=== PATIENT | male | born 1955 | race Caucasian/White ===

== ENCOUNTER 2018-02-05 11:45 | Inpatient (IN) | payer MEDICARE, MEDICAID ==
[~2018-02-05] VITALS: Ht 180.3 cm; Wt 90.3 kg
[~2018-02-05 11:45] MED LIST: ESCI10TA PO; LITH300T4 PO; MULT-1203 PO
[2018-02-05] MEDS ORDERED: LITH300CRT PO (13:31)
[2018-02-05] MEDS ORDERED: OXYC-38 PO (13:31)
[2018-02-05] MEDS ORDERED: QUET200T PO (13:31)
[2018-02-05 13:44] VITALS: BP 129/64
[2018-02-05] MEDS ORDERED: LOPERAMIDE HCL 2 MG CAPSULE PO PRN (13:45)
[2018-02-05] MEDS ORDERED: MAGNESIUM HYDROXIDE SUSPENSION 30 ML UDCUP PO PRN (13:45)
[2018-02-05] MEDS ORDERED: TUBERCULIN, PURIFIED PROTEIN DERIVATIVE 5 TU/0.1 ML SYG ID ONE (13:45)
[2018-02-05] MEDS ORDERED: HydrOXYzine PAMOATE 50 MG CAPSULE PO PRN (13:45)
[2018-02-05] MEDS ORDERED: ACETAMINOPHEN 325 MG TABLET PO PRN (13:45)
[2018-02-05] MEDS ORDERED: GuaiFENesin/D-METHORPHAN [SUGAR-FREE] 200-20MG/10 ML SYRUP UDCUP PO PRN (13:45)
[2018-02-05] MEDS ORDERED: PROMETHAZINE HCL 25 MG TABLET PO PRN (13:45)
[2018-02-05] MEDS ORDERED: MAG HYDROX/AL HYDROX/SIMETH ES 30 ML SUSPENSION UDCUP PO PRN (13:45)
[2018-02-05] MEDS ORDERED: QUEtiapine FUMARATE 100 MG TABLET PO PRN (13:45)
[2018-02-05] MEDS: THIAMINE HCL 100 MG TABLET PO SCH (16:39)
[2018-02-05] MEDS: LITHIUM CARBONATE 300 MG CAPSULE PO SCH (16:39)
[2018-02-05] MEDS: ACAMPROSATE CALCIUM 333 MG DR TABLET PO SCH (17:00)
[2018-02-05 19:20] VITALS: BP 114/78
[2018-02-05] MEDS: QUEtiapine FUMARATE 200 MG TABLET PO SCH (20:35)
[2018-02-06 02:45] VITALS: BP 112/76
[2018-02-06] MEDS: LITHIUM CARBONATE 300 MG CAPSULE PO SCH ×3 (08:22→16:34)
[2018-02-06] MEDS: THIAMINE HCL 100 MG TABLET PO SCH ×2 (08:23→16:34)
[2018-02-06] MEDS: AMOXICILLIN TRIHYDRATE 500 MG CAPSULE PO SCH ×3 (08:23→16:34)
[2018-02-06] MEDS: FOLIC ACID 1 MG TABLET PO SCH (08:23)
[2018-02-06] MEDS: MULTIVITAMINS WITH MINERALS, THERAPEUTIC TABLET PO SCH (08:23)
[2018-02-06] MEDS: ACAMPROSATE CALCIUM 333 MG DR TABLET PO SCH ×3 (08:27→16:34)
[2018-02-06 08:32] LABS: BASOPHILS % (AUTO) 0.5 % (0.0-2.0); EOSINOPHILS % (AUTO) 4.7 % (1.0-6.0); HEMATOCRIT 40.9 % (41-53); HEMOGLOBIN 14.1 g/dL (13.5-17.5); LYMPHOCYTES # (AUTO) 1.5 K/uL (1.0-4.8); LYMPHOCYTES % (AUTO) 23.1 % (22.0-44.0); MEAN CORPUSCULAR HEMOGLOBIN 33.1 pg (26.0-34.0); MEAN CORPUSCULAR HGB CONC 34.4 G/dL (31.0-37.0); MEAN CORPUSCULAR VOLUME 96 fL (80-100); MONOCYTES # (AUTO) 0.5 K/uL (0.1-1.0); MONOCYTES % (AUTO) 8.4 % (2.0-9.0); NEUTROPHILS # (AUTO) 4.1 K/uL (1.8-7.7); NEUTROPHILS % (AUTO) 63.3 % (40.0-70.0); PLATELET COUNT (AUTO) 223 K/uL (150-450); RED BLOOD CELL COUNT(AUTO) 4.25 MIL/uL (4.50-5.90); RED CELL DISTRIBUTION WIDTH 12.5 % (11.5-14.5)
[2018-02-06 08:50] LABS: HEMOGLOBIN A1C 5.1 % (4.5-6.2)
[2018-02-06 09:11] LABS: ALANINE AMINOTRANSFERASE 51 U/L (12-78); ALBUMIN 3.1 g/dL (3.4-5.0); ALKALINE PHOSPHATASE 57 U/L (46-116); ANION GAP 5 mmol/L (8-16); ASPARTATE AMINOTRANSFERASE 19 U/L (15-37); BILIRUBIN,TOTAL 0.6 mg/dL (0.1-1.0); CARBON DIOXIDE 29 mmol/L (22-29); CHLORIDE 106 mmol/L (98-107); CHOL/HDL RATIO 2.5 (4.2-7.3); CHOLESTEROL 119 mg/dL (131-200); CREATININE 0.85 mg/dL (0.60-1.30); GLOMERULAR FILTR. RATE CALC > 60 mL/min (>60); GLUCOSE,RANDOM 96 mg/dL (70-110); HDL CHOLESTEROL 47 mg/dL (40-60); LDL CHOL (CALC.) 60 mg/dL (0-130); POTASSIUM 3.7 mmol/L (3.5-5.1); SODIUM SERUM 140 mmol/L (136-145); THYROID STIMULATING HORMONE 0.67 uIU/mL (0.36-3.74); TOTAL PROTEIN, SERUM 6.6 g/dL (6.4-8.2); TRIGLYCERIDES 59 mg/dL (15-150); UREA NITROGEN, BLOOD 22 mg/dL (7-18)
[2018-02-06 09:12] VITALS: BP 125/69
[2018-02-06 16:20] VITALS: BP 110/74
[2018-02-06] MEDS: QUEtiapine FUMARATE 200 MG TABLET PO SCH (20:37)
[2018-02-07 00:49] VITALS: BP 103/66
[2018-02-07 08:20] VITALS: BP 112/71
[2018-02-07 09:14] LABS: AMPHET/METH SCREEN,URINE POSITIVE (NEGATIVE); BARBITURATE SCREEN, URINE NEGATIVE (NEGATIVE); BENZODIAZEPINES SCREEN,URINE NEGATIVE (NEGATIVE); CANNABINOID SCREEN,URINE NEGATIVE (NEGATIVE); COCAINE SCREEN,URINE NEGATIVE (NEGATIVE); METHADONE SCREEN, URINE NEGATIVE (NEGATIVE); OPIATE SCREEN,URINE NEGATIVE (NEGATIVE)
[2018-02-07 09:15] LABS: PHENCYCLIDINE SCREEN,URINE NEGATIVE (NEGATIVE)
[2018-02-07 09:35] LABS: APPEARANCE,URINE CLEAR (CLEAR); BILIRUBIN,URINE NEGATIVE (NEGATIVE); GLUCOSE, URINE (UA) NEGATIVE (NEGATIVE); KETONES,URINE NEGATIVE (NEGATIVE); LEUKOCYTE ESTERASE ,URINE NEGATIVE (NEGATIVE); NITRATE,URINE NEGATIVE (NEGATIVE); OCCULT BLOOD,URINE NEGATIVE (NEGATIVE); PH,URINE 6.5 (5.0-8.0); PROTEIN,URINE NEGATIVE (NEGATIVE); UROBILINOGEN,URINE 0.2 mg/dL (<=1.0)
[2018-02-07] MEDS: FOLIC ACID 1 MG TABLET PO SCH (09:50)
[2018-02-07] MEDS: ACAMPROSATE CALCIUM 333 MG DR TABLET PO SCH ×3 (09:50→16:38)
[2018-02-07] MEDS: THIAMINE HCL 100 MG TABLET PO SCH ×2 (09:50→16:38)
[2018-02-07] MEDS: MULTIVITAMINS WITH MINERALS, THERAPEUTIC TABLET PO SCH (09:50)
[2018-02-07] MEDS: AMOXICILLIN TRIHYDRATE 500 MG CAPSULE PO SCH ×3 (09:50→16:38)
[2018-02-07] MEDS: LITHIUM CARBONATE 300 MG CAPSULE PO SCH ×3 (09:50→16:38)
[2018-02-07 17:07] VITALS: BP 128/78
[2018-02-07] MEDS: QUEtiapine FUMARATE 200 MG TABLET PO SCH (20:31)
[2018-02-08 00:08] VITALS: BP 111/69
[2018-02-08 08:33] VITALS: BP 120/66
[2018-02-08] MEDS: ACAMPROSATE CALCIUM 333 MG DR TABLET PO SCH ×3 (08:42→16:33)
[2018-02-08] MEDS: THIAMINE HCL 100 MG TABLET PO SCH ×2 (08:42→16:33)
[2018-02-08] MEDS: AMOXICILLIN TRIHYDRATE 500 MG CAPSULE PO SCH ×3 (08:42→16:33)
[2018-02-08] MEDS: MULTIVITAMINS WITH MINERALS, THERAPEUTIC TABLET PO SCH (08:42)
[2018-02-08] MEDS: LITHIUM CARBONATE 300 MG CAPSULE PO SCH ×3 (08:42→16:33)
[2018-02-08] MEDS: FOLIC ACID 1 MG TABLET PO SCH (08:42)
[2018-02-08 16:07] VITALS: BP 116/67
[2018-02-08] MEDS ORDERED: QUEtiapine FUMARATE 300 MG TABLET PO SCH (21:00)
[2018-02-09 06:59] VITALS: BP 120/86
[2018-02-09 08:21] VITALS: BP 113/71
[2018-02-09] MEDS: AMOXICILLIN TRIHYDRATE 500 MG CAPSULE PO SCH ×3 (08:34→16:36)
[2018-02-09] MEDS: MULTIVITAMINS WITH MINERALS, THERAPEUTIC TABLET PO SCH (08:34)
[2018-02-09] MEDS: THIAMINE HCL 100 MG TABLET PO SCH ×2 (08:34→16:36)
[2018-02-09] MEDS: FOLIC ACID 1 MG TABLET PO SCH (08:34)
[2018-02-09] MEDS: LITHIUM CARBONATE 300 MG CAPSULE PO SCH ×3 (08:34→16:36)
[2018-02-09] MEDS: ACAMPROSATE CALCIUM 333 MG DR TABLET PO SCH ×3 (08:35→16:36)
[2018-02-09] MEDS: LORazepam 2 MG TABLET PO PRN (09:19)
[2018-02-09 16:10] VITALS: BP 100/60
[2018-02-09] MEDS: QUEtiapine FUMARATE 200 MG TABLET PO SCH (20:45)
[2018-02-10 06:23] VITALS: BP 109/64
[2018-02-10 08:14] VITALS: BP 113/65
[2018-02-10] MEDS: ACAMPROSATE CALCIUM 333 MG DR TABLET PO SCH ×3 (09:07→16:12)
[2018-02-10] MEDS: THIAMINE HCL 100 MG TABLET PO SCH ×2 (09:07→16:11)
[2018-02-10] MEDS: MULTIVITAMINS WITH MINERALS, THERAPEUTIC TABLET PO SCH (09:07)
[2018-02-10] MEDS: AMOXICILLIN TRIHYDRATE 500 MG CAPSULE PO SCH ×3 (09:07→16:12)
[2018-02-10] MEDS: LITHIUM CARBONATE 300 MG CAPSULE PO SCH ×3 (09:07→16:12)
[2018-02-10] MEDS: FOLIC ACID 1 MG TABLET PO SCH (09:07)
[2018-02-10 16:04] VITALS: BP 119/68
[2018-02-10] MEDS: QUEtiapine FUMARATE 200 MG TABLET PO SCH (20:17)
[2018-02-10] MEDS: ZOLPIDEM TARTRATE 10 MG TABLET PO PRN (20:39)
[2018-02-11 06:29] VITALS: BP 121/62
[2018-02-11 08:10] VITALS: BP 112/76
[2018-02-11] MEDS: MULTIVITAMINS WITH MINERALS, THERAPEUTIC TABLET PO SCH (08:12)
[2018-02-11] MEDS: THIAMINE HCL 100 MG TABLET PO SCH ×2 (08:12→16:39)
[2018-02-11] MEDS: LITHIUM CARBONATE 300 MG CAPSULE PO SCH ×3 (08:12→16:39)
[2018-02-11] MEDS: AMOXICILLIN TRIHYDRATE 500 MG CAPSULE PO SCH ×3 (08:12→16:39)
[2018-02-11] MEDS: ACAMPROSATE CALCIUM 333 MG DR TABLET PO SCH ×3 (08:12→16:39)
[2018-02-11] MEDS: FOLIC ACID 1 MG TABLET PO SCH (08:12)
[2018-02-11] MEDS: LORazepam 2 MG TABLET PO PRN (13:15)
[2018-02-11 16:10] VITALS: BP 110/62
[2018-02-11] MEDS: QUEtiapine FUMARATE 200 MG TABLET PO SCH (20:23)
[2018-02-11] MEDS: ZOLPIDEM TARTRATE 10 MG TABLET PO PRN (20:29)
[2018-02-12 06:36] VITALS: BP 99/58
[2018-02-12 08:21] VITALS: BP 113/67
[2018-02-12] MEDS: LITHIUM CARBONATE 300 MG CAPSULE PO SCH ×2 (08:45→12:26)
[2018-02-12] MEDS: FOLIC ACID 1 MG TABLET PO SCH (08:45)
[2018-02-12] MEDS: MULTIVITAMINS WITH MINERALS, THERAPEUTIC TABLET PO SCH (08:45)
[2018-02-12] MEDS: ACAMPROSATE CALCIUM 333 MG DR TABLET PO SCH ×2 (08:45→12:26)
[2018-02-12] MEDS: AMOXICILLIN TRIHYDRATE 500 MG CAPSULE PO SCH ×2 (08:45→12:26)
[2018-02-12] MEDS: THIAMINE HCL 100 MG TABLET PO SCH (08:45)
[2018-02-12] MEDS ORDERED: LITH300C3 PO ×2 (11:18→11:32)
[2018-02-12] MEDS ORDERED: ACAM333T7 PO ×2 (11:18→11:32)
[2018-02-12] MEDS ORDERED: QUET200T29 PO (11:18)
[2018-02-12] MEDS ORDERED: AMOX500C2 PO (11:32)
[2018-02-12] MEDS ORDERED: QUET200T PO (11:32)
== END 2018-02-12 12:45 | disposition home or self-care (01) | DRG 885 ==
LOC: B2X 14:14
PROVIDERS: ADMIT Psychiatry & Neurology Psychiatry; ATTEND Psychiatry & Neurology Psychiatry
DX: F31.9 Bipolar disorder, unspecified (principal); R45.851 Suicidal ideations; F17.210 Nicotine dependence, cigarettes, uncomplicated; E03.9 Hypothyroidism, unspecified; J44.9 Chronic obstructive pulmonary disease, unspecified; M19.90 Unspecified osteoarthritis, unspecified site; Z91.14 Patient's other noncompliance with medication regimen; Z91.19 Patient's noncompliance with other medical treatment and regimen; K04.7 Periapical abscess without sinus
CPT/HCPCS: 80307; 83036; 84439; 84443; 86592

== ENCOUNTER 2018-04-15 10:47 | Inpatient (IN) | payer MEDICARE, MEDICAID ==
[~2018-04-15] VITALS: Ht 180.3 cm; Wt 87.1 kg
[~2018-04-15 10:47] MED LIST changes: +ACAM333T7 PO; +AMOX500C2 PO; -ESCI10TA PO; +LITH300C3 PO; -LITH300T4 PO; -MULT-1203 PO; +QUET200T PO; +QUET200T29 PO
[2018-04-16 12:06] VITALS: BP 106/61
[2018-04-16] MEDS ORDERED: ACETAMINOPHEN 325 MG TABLET ONE (12:20)
[2018-04-16] MEDS ORDERED: MAGNESIUM HYDROXIDE SUSPENSION 30 ML UDCUP PO PRN (12:30)
[2018-04-16] MEDS ORDERED: ACETAMINOPHEN 325 MG TABLET PO PRN (12:30)
[2018-04-16] MEDS ORDERED: QUEtiapine FUMARATE 100 MG TABLET PO PRN (12:30)
[2018-04-16] MEDS ORDERED: MAG HYDROX/AL HYDROX/SIMETH ES 30 ML SUSPENSION UDCUP PO PRN (12:30)
[2018-04-16] MEDS ORDERED: LORazepam 2 MG TABLET PO PRN (12:30)
[2018-04-16] MEDS ORDERED: ZOLPIDEM TARTRATE 10 MG TABLET PO PRN (12:30)
[2018-04-16] MEDS ORDERED: LOPERAMIDE HCL 2 MG CAPSULE PO PRN (12:30)
[2018-04-16] MEDS ORDERED: GuaiFENesin/D-METHORPHAN [SUGAR-FREE] 200-20MG/10 ML SYRUP UDCUP PO PRN (12:30)
[2018-04-16] MEDS ORDERED: HydrOXYzine PAMOATE 50 MG CAPSULE PO PRN (12:30)
[2018-04-16] MEDS ORDERED: PROMETHAZINE HCL 25 MG TABLET PO PRN (12:30)
[2018-04-16 14:30] VITALS: BP 123/74
[2018-04-16 16:39] VITALS: BP 121/67
[2018-04-16] MEDS: LITHIUM CARBONATE 300 MG CAPSULE PO SCH (16:40)
[2018-04-16] MEDS: THIAMINE HCL 100 MG TABLET PO SCH (16:40)
[2018-04-16] MEDS: ACAMPROSATE CALCIUM 333 MG DR TABLET PO SCH (16:44)
[2018-04-16 18:08] VITALS: BP 121/67
[2018-04-16] MEDS ORDERED: QUEtiapine FUMARATE 200 MG TABLET PO SCH (21:00)
[2018-04-17 05:25] VITALS: BP 103/60
[2018-04-17] MEDS: THIAMINE HCL 100 MG TABLET PO SCH ×2 (08:28→16:47)
[2018-04-17] MEDS: MULTIVITAMINS WITH MINERALS, THERAPEUTIC TABLET PO SCH (08:28)
[2018-04-17] MEDS: LITHIUM CARBONATE 300 MG CAPSULE PO SCH ×3 (08:28→16:48)
[2018-04-17] MEDS: FOLIC ACID 1 MG TABLET PO SCH (08:28)
[2018-04-17 08:29] VITALS: BP 114/60
[2018-04-17] MEDS: ACAMPROSATE CALCIUM 333 MG DR TABLET PO SCH ×3 (08:30→16:48)
[2018-04-17 08:31] LABS: BASOPHILS % (AUTO) 0.3 % (0.0-2.0); EOSINOPHILS % (AUTO) 2.6 % (1.0-6.0); HEMATOCRIT 43.3 % (41-53); LYMPHOCYTES # (AUTO) 0.8 K/uL (1.0-4.8); LYMPHOCYTES % (AUTO) 9.9 % (22.0-44.0); MEAN CORPUSCULAR HEMOGLOBIN 33.1 pg (26.0-34.0); MEAN CORPUSCULAR HGB CONC 34.7 G/dL (31.0-37.0); MEAN CORPUSCULAR VOLUME 95 fL (80-100); MONOCYTES # (AUTO) 0.7 K/uL (0.1-1.0); MONOCYTES % (AUTO) 8.8 % (2.0-9.0); NEUTROPHILS # (AUTO) 6.1 K/uL (1.8-7.7); NEUTROPHILS % (AUTO) 78.4 % (40.0-70.0); PLATELET COUNT (AUTO) 201 K/uL (150-450); RED BLOOD CELL COUNT(AUTO) 4.54 MIL/uL (4.50-5.90); RED CELL DISTRIBUTION WIDTH 13.4 % (11.5-14.5)
[2018-04-17 08:41] LABS: HEMOGLOBIN A1C 5.1 % (4.5-6.2)
[2018-04-17 09:01] LABS: ALANINE AMINOTRANSFERASE 53 U/L (12-78); ALKALINE PHOSPHATASE 58 U/L (46-116); ANION GAP 6 mmol/L (8-16); ASPARTATE AMINOTRANSFERASE 32 U/L (15-37); BILIRUBIN,TOTAL 0.5 mg/dL (0.1-1.0); CALCIUM, TOTAL 8.7 mg/dL (8.8-10.5); CARBON DIOXIDE 29 mmol/L (22-29); CHLORIDE 99 mmol/L (98-107); CHOL/HDL RATIO 2.5 (4.2-7.3); CHOLESTEROL 151 mg/dL (131-200); CREATININE 0.77 mg/dL (0.60-1.30); FREE T4 (FREE THYROXINE) 0.83 ng/dL (0.76-1.46); GLOMERULAR FILTR. RATE CALC > 60 mL/min (>60); GLUCOSE,RANDOM 108 mg/dL (70-110); HDL CHOLESTEROL 61 mg/dL (40-60); LDL CHOL (CALC.) 73 mg/dL (0-130); POTASSIUM 3.7 mmol/L (3.5-5.1); SODIUM SERUM 134 mmol/L (136-145); THYROID STIMULATING HORMONE 0.22 uIU/mL (0.36-3.74); TOTAL PROTEIN, SERUM 6.9 g/dL (6.4-8.2); TRIGLYCERIDES 87 mg/dL (15-150); UREA NITROGEN, BLOOD 9 mg/dL (7-18)
[2018-04-17 16:05] VITALS: BP 133/73
[2018-04-17] MEDS: QUEtiapine FUMARATE 200 MG TABLET PO SCH (20:11)
[2018-04-18 04:56] VITALS: BP 126/82
[2018-04-18 08:18] VITALS: BP 109/64
[2018-04-18] MEDS: FOLIC ACID 1 MG TABLET PO SCH (08:56)
[2018-04-18] MEDS: MULTIVITAMINS WITH MINERALS, THERAPEUTIC TABLET PO SCH (08:56)
[2018-04-18] MEDS: LITHIUM CARBONATE 300 MG CAPSULE PO SCH ×3 (08:56→17:01)
[2018-04-18] MEDS: THIAMINE HCL 100 MG TABLET PO SCH ×2 (08:56→17:01)
[2018-04-18] MEDS: ACAMPROSATE CALCIUM 333 MG DR TABLET PO SCH ×3 (08:57→17:01)
[2018-04-18 16:04] VITALS: BP 110/67
[2018-04-18] MEDS: QUEtiapine FUMARATE 200 MG TABLET PO SCH (21:50)
[2018-04-19 05:26] VITALS: BP 116/72
[2018-04-19 08:37] VITALS: BP 109/67
[2018-04-19] MEDS: MULTIVITAMINS WITH MINERALS, THERAPEUTIC TABLET PO SCH (08:49)
[2018-04-19] MEDS: FOLIC ACID 1 MG TABLET PO SCH (08:49)
[2018-04-19] MEDS: LITHIUM CARBONATE 300 MG CAPSULE PO SCH ×3 (08:49→16:43)
[2018-04-19] MEDS: ACAMPROSATE CALCIUM 333 MG DR TABLET PO SCH ×3 (08:49→16:43)
[2018-04-19] MEDS: THIAMINE HCL 100 MG TABLET PO SCH ×2 (08:49→16:43)
[2018-04-19] MEDS ORDERED: HALOPERIDOL LACTATE 5 MG/ML VIAL ONE (14:10)
[2018-04-19] MEDS ORDERED: LORazepam 2 MG/ML VIAL ONE (14:10)
[2018-04-19] MEDS ORDERED: QUET200T29 PO (15:03)
[2018-04-19] MEDS ORDERED: LITH300C3 PO (15:03)
[2018-04-19] MEDS ORDERED: ACAM333T7 PO (15:03)
[2018-04-19 16:14] VITALS: BP 125/78
[2018-04-19] MEDS: QUEtiapine FUMARATE 200 MG TABLET PO SCH (21:14)
[2018-04-20 06:17] VITALS: BP 120/82
[2018-04-20 08:26] VITALS: BP 105/65
[2018-04-20] MEDS: MULTIVITAMINS WITH MINERALS, THERAPEUTIC TABLET PO SCH (09:29)
[2018-04-20] MEDS: ACAMPROSATE CALCIUM 333 MG DR TABLET PO SCH (09:29)
[2018-04-20] MEDS: LITHIUM CARBONATE 300 MG CAPSULE PO SCH (09:29)
[2018-04-20] MEDS: FOLIC ACID 1 MG TABLET PO SCH (09:29)
[2018-04-20] MEDS: THIAMINE HCL 100 MG TABLET PO SCH (09:29)
== END 2018-04-20 10:55 | disposition home or self-care (01) | DRG 885 ==
LOC: B2X 04-16 12:31
PROVIDERS: ADMIT Psychiatry & Neurology Psychiatry; ATTEND Psychiatry & Neurology Psychiatry
DX: F31.30 Bipolar disorder, current episode depressed, mild or moderate severity, unspecified (principal); E03.9 Hypothyroidism, unspecified; E88.09 Other disorders of plasma-protein metabolism, not elsewhere classified; F17.210 Nicotine dependence, cigarettes, uncomplicated; S01.81XA Laceration without foreign body of other part of head, initial encounter; X58.XXXA Exposure to other specified factors, initial encounter; Y93.89 Activity, other specified; Y92.89 Other specified places as the place of occurrence of the external cause; Y99.8 Other external cause status; Z91.19 Patient's noncompliance with other medical treatment and regimen; Z79.899 Other long term (current) drug therapy
CPT/HCPCS: 83036; 84439; 84443; 86592; J1630; J2060

== ENCOUNTER 2018-04-30 14:11 | Inpatient (IN) | payer MEDICARE, MEDICAID ==
[~2018-04-30] VITALS: Ht 180.3 cm; Wt 85.4 kg
[~2018-04-30 14:11] MED LIST changes: -AMOX500C2 PO; -QUET200T PO
[2018-04-30] MEDS ORDERED: PROMETHAZINE HCL 25 MG TABLET PO PRN (15:45)
[2018-04-30] MEDS ORDERED: MAGNESIUM HYDROXIDE SUSPENSION 30 ML UDCUP PO PRN (15:45)
[2018-04-30] MEDS ORDERED: ACETAMINOPHEN 325 MG TABLET PO PRN (15:45)
[2018-04-30] MEDS ORDERED: HydrOXYzine PAMOATE 50 MG CAPSULE PO PRN (15:45)
[2018-04-30] MEDS ORDERED: ZOLPIDEM TARTRATE 5 MG TABLET PO PRN (15:45)
[2018-04-30] MEDS ORDERED: LORazepam 2 MG TABLET PO PRN (15:45)
[2018-04-30] MEDS ORDERED: GuaiFENesin/D-METHORPHAN [SUGAR-FREE] 200-20MG/10 ML SYRUP UDCUP PO PRN (15:45)
[2018-04-30] MEDS ORDERED: QUEtiapine FUMARATE 100 MG TABLET PO PRN (15:45)
[2018-04-30] MEDS ORDERED: LOPERAMIDE HCL 2 MG CAPSULE PO PRN (15:45)
[2018-04-30] MEDS ORDERED: MAG HYDROX/AL HYDROX/SIMETH ES 30 ML SUSPENSION UDCUP PO PRN (15:45)
[2018-04-30 16:04] VITALS: BP 132/81
[2018-04-30 16:28] VITALS: BP 112/63
[2018-04-30] MEDS: LITHIUM CARBONATE 300 MG CAPSULE PO SCH (20:14)
[2018-04-30] MEDS: ACAMPROSATE CALCIUM 333 MG DR TABLET PO SCH (20:14)
[2018-04-30] MEDS: THIAMINE HCL 100 MG TABLET PO SCH (20:14)
[2018-04-30] MEDS ORDERED: QUEtiapine FUMARATE 200 MG TABLET PO SCH (21:00)
[2018-05-01 06:57] VITALS: BP 116/70
[2018-05-01 08:12] LABS: BASOPHILS % (AUTO) 0.5 % (0.0-2.0); EOSINOPHILS % (AUTO) 5.2 % (1.0-6.0); HEMATOCRIT 42.7 % (41-53); LYMPHOCYTES % (AUTO) 19.5 % (22.0-44.0); MEAN CORPUSCULAR HEMOGLOBIN 33.3 pg (26.0-34.0); MEAN CORPUSCULAR HGB CONC 35.1 G/dL (31.0-37.0); MEAN CORPUSCULAR VOLUME 95 fL (80-100); MONOCYTES # (AUTO) 0.4 K/uL (0.1-1.0); MONOCYTES % (AUTO) 8.5 % (2.0-9.0); NEUTROPHILS # (AUTO) 3.3 K/uL (1.8-7.7); NEUTROPHILS % (AUTO) 66.3 % (40.0-70.0); PLATELET COUNT (AUTO) 259 K/uL (150-450); RED BLOOD CELL COUNT(AUTO) 4.51 MIL/uL (4.50-5.90); RED CELL DISTRIBUTION WIDTH 13.1 % (11.5-14.5)
[2018-05-01 08:25] VITALS: BP 131/84
[2018-05-01] MEDS: FOLIC ACID 1 MG TABLET PO SCH (08:42)
[2018-05-01] MEDS: ACAMPROSATE CALCIUM 333 MG DR TABLET PO SCH ×3 (08:42→16:35)
[2018-05-01] MEDS: LITHIUM CARBONATE 300 MG CAPSULE PO SCH ×3 (08:42→16:35)
[2018-05-01] MEDS: THIAMINE HCL 100 MG TABLET PO SCH ×2 (08:42→16:35)
[2018-05-01] MEDS: MULTIVITAMINS WITH MINERALS, THERAPEUTIC TABLET PO SCH (08:42)
[2018-05-01 08:49] LABS: ALANINE AMINOTRANSFERASE 41 U/L (12-78); ALBUMIN 3.2 g/dL (3.4-5.0); ALKALINE PHOSPHATASE 55 U/L (46-116); ANION GAP 4 mmol/L (8-16); ASPARTATE AMINOTRANSFERASE 30 U/L (15-37); BILIRUBIN,TOTAL 0.5 mg/dL (0.1-1.0); CALCIUM, TOTAL 8.8 mg/dL (8.8-10.5); CARBON DIOXIDE 31 mmol/L (22-29); CHLORIDE 104 mmol/L (98-107); CHOL/HDL RATIO 2.1 (4.2-7.3); CHOLESTEROL 150 mg/dL (131-200); CREATININE 0.79 mg/dL (0.60-1.30); FREE T4 (FREE THYROXINE) 1.03 ng/dL (0.76-1.46); GLOMERULAR FILTR. RATE CALC > 60 mL/min (>60); GLUCOSE,RANDOM 98 mg/dL (70-110); HDL CHOLESTEROL 71 mg/dL (40-60); LDL CHOL (CALC.) 69 mg/dL (0-130); POTASSIUM 3.8 mmol/L (3.5-5.1); SODIUM SERUM 139 mmol/L (136-145); THYROID STIMULATING HORMONE 0.59 uIU/mL (0.36-3.74); TRIGLYCERIDES 50 mg/dL (15-150); UREA NITROGEN, BLOOD 11 mg/dL (7-18)
[2018-05-01 09:01] LABS: LITHIUM < 0.20 mmol/L (0.60-1.20)
[2018-05-01 16:00] VITALS: BP 112/66
[2018-05-01] MEDS: QUEtiapine FUMARATE 200 MG TABLET PO SCH ×2 (20:35→21:23)
[2018-05-02 01:00] VITALS: BP 120/72
[2018-05-02 08:19] VITALS: BP 135/79
[2018-05-02] MEDS: FOLIC ACID 1 MG TABLET PO SCH (08:38)
[2018-05-02] MEDS: LITHIUM CARBONATE 300 MG CAPSULE PO SCH ×3 (08:38→16:58)
[2018-05-02] MEDS: MULTIVITAMINS WITH MINERALS, THERAPEUTIC TABLET PO SCH (08:38)
[2018-05-02] MEDS: THIAMINE HCL 100 MG TABLET PO SCH ×2 (08:38→16:58)
[2018-05-02] MEDS: ACAMPROSATE CALCIUM 333 MG DR TABLET PO SCH ×3 (08:38→16:59)
[2018-05-02 16:06] VITALS: BP 130/76
[2018-05-02] MEDS: QUEtiapine FUMARATE 200 MG TABLET PO SCH (20:21)
[2018-05-03 06:22] VITALS: BP 112/64
[2018-05-03 08:06] VITALS: BP 115/63
[2018-05-03] MEDS: ACAMPROSATE CALCIUM 333 MG DR TABLET PO SCH ×3 (09:05→16:29)
[2018-05-03] MEDS: THIAMINE HCL 100 MG TABLET PO SCH ×2 (09:05→16:29)
[2018-05-03] MEDS: LITHIUM CARBONATE 300 MG CAPSULE PO SCH ×4 (09:05→20:42)
[2018-05-03] MEDS: MULTIVITAMINS WITH MINERALS, THERAPEUTIC TABLET PO SCH (09:05)
[2018-05-03] MEDS: FOLIC ACID 1 MG TABLET PO SCH (09:05)
[2018-05-03 16:00] VITALS: BP 121/70
[2018-05-03] MEDS: QUEtiapine FUMARATE 200 MG TABLET PO SCH (20:42)
[2018-05-04 06:15] VITALS: BP 120/78
[2018-05-04 08:09] VITALS: BP 110/59
[2018-05-04] MEDS: MULTIVITAMINS WITH MINERALS, THERAPEUTIC TABLET PO SCH (08:26)
[2018-05-04] MEDS: ACAMPROSATE CALCIUM 333 MG DR TABLET PO SCH ×2 (08:26→12:26)
[2018-05-04] MEDS: FOLIC ACID 1 MG TABLET PO SCH (08:26)
[2018-05-04] MEDS: THIAMINE HCL 100 MG TABLET PO SCH (08:26)
[2018-05-04] MEDS: LITHIUM CARBONATE 300 MG CAPSULE PO SCH ×2 (08:29→12:26)
[2018-05-04] MEDS ORDERED: ACAM333T7 PO (14:32)
[2018-05-04] MEDS ORDERED: LITH300C3 PO ×2 (14:32→15:36)
[2018-05-04] MEDS ORDERED: QUET200T29 PO (14:32)
[2018-05-04] MEDS ORDERED: QUET200T PO (15:29)
[2018-05-04 16:27] VITALS: BP 114/79
== END 2018-05-04 16:00 | disposition home or self-care (01) | DRG 885 ==
LOC: B2X 15:55 → EDSTATUS 16:48
PROVIDERS: ADMIT Psychiatry & Neurology Psychiatry; ATTEND Psychiatry & Neurology Psychiatry
DX: F31.9 Bipolar disorder, unspecified (principal); R45.851 Suicidal ideations; E03.9 Hypothyroidism, unspecified; G89.29 Other chronic pain; F17.210 Nicotine dependence, cigarettes, uncomplicated; M19.90 Unspecified osteoarthritis, unspecified site; Z59.0 Homelessness; Z65.3 Problems related to other legal circumstances; Z91.19 Patient's noncompliance with other medical treatment and regimen; Z79.899 Other long term (current) drug therapy
CPT/HCPCS: 84439; 84443; 86592; 87081

== ENCOUNTER 2018-06-03 18:00 | Inpatient (IN) | payer MEDICARE, MEDICAID ==
[~2018-06-03] VITALS: Ht 180.3 cm; Wt 84.8 kg
[~2018-06-03 18:00] MED LIST changes: +QUET200T PO
[2018-06-03] MEDS ORDERED: HALOPERIDOL 5 MG TABLET PO PRN (20:30)
[2018-06-03] MEDS ORDERED: ZOLPIDEM TARTRATE 10 MG TABLET PO PRN (20:30)
[2018-06-03] MEDS ORDERED: HydrOXYzine PAMOATE 25 MG CAPSULE PO PRN (21:00)
[2018-06-03 21:10] VITALS: BP 130/79
[2018-06-03] MEDS: QUEtiapine FUMARATE 200 MG TABLET PO SCH (21:36)
[2018-06-03] MEDS: LITHIUM CARBONATE 300 MG CAPSULE PO SCH (21:36)
[2018-06-03] MEDS ORDERED: ACETAMINOPHEN 325 MG TABLET PO PRN (22:00)
[2018-06-03] MEDS ORDERED: IBUPROFEN 600 MG TABLET PO PRN (22:00)
[2018-06-03 22:31] VITALS: BP 117/66
[2018-06-04 06:33] VITALS: BP 121/68
[2018-06-04 08:32] LABS: BASOPHILS % (AUTO) 0.6 % (0.0-2.0); EOSINOPHILS % (AUTO) 5.9 % (1.0-6.0); HEMATOCRIT 44.1 % (41-53); HEMOGLOBIN 15.2 g/dL (13.5-17.5); LYMPHOCYTES # (AUTO) 1.6 K/uL (1.0-4.8); LYMPHOCYTES % (AUTO) 26.2 % (22.0-44.0); MEAN CORPUSCULAR HEMOGLOBIN 33.2 pg (26.0-34.0); MEAN CORPUSCULAR HGB CONC 34.4 G/dL (31.0-37.0); MEAN CORPUSCULAR VOLUME 96 fL (80-100); MONOCYTES # (AUTO) 0.6 K/uL (0.1-1.0); MONOCYTES % (AUTO) 9.2 % (2.0-9.0); NEUTROPHILS # (AUTO) 3.5 K/uL (1.8-7.7); NEUTROPHILS % (AUTO) 58.1 % (40.0-70.0); PLATELET COUNT (AUTO) 220 K/uL (150-450); RED BLOOD CELL COUNT(AUTO) 4.58 MIL/uL (4.50-5.90); RED CELL DISTRIBUTION WIDTH 13.1 % (11.5-14.5)
[2018-06-04] MEDS: BACITRACIN 28.4 GM OINTMENT TP SCH ×2 (09:08→17:00)
[2018-06-04] MEDS: LITHIUM CARBONATE 300 MG CAPSULE PO SCH ×2 (09:08→17:00)
[2018-06-04 09:27] LABS: AMPHET/METH SCREEN,URINE NEGATIVE (NEGATIVE); BARBITURATE SCREEN, URINE NEGATIVE (NEGATIVE); BENZODIAZEPINES SCREEN,URINE NEGATIVE (NEGATIVE); CANNABINOID SCREEN,URINE NEGATIVE (NEGATIVE); COCAINE SCREEN,URINE NEGATIVE (NEGATIVE); METHADONE SCREEN, URINE NEGATIVE (NEGATIVE); OPIATE SCREEN,URINE NEGATIVE (NEGATIVE); PHENCYCLIDINE SCREEN,URINE NEGATIVE (NEGATIVE)
[2018-06-04 09:28] LABS: ALBUMIN 3.4 g/dL (3.4-5.0); ALKALINE PHOSPHATASE 52 U/L (46-116); ANION GAP 5 mmol/L (8-16); ASPARTATE AMINOTRANSFERASE 32 U/L (15-37); BILIRUBIN,TOTAL 0.3 mg/dL (0.1-1.0); CALCIUM, TOTAL 8.8 mg/dL (8.8-10.5); CARBON DIOXIDE 33 mmol/L (22-29); CHLORIDE 105 mmol/L (98-107); CHOL/HDL RATIO 2.4 (4.2-7.3); CHOLESTEROL 154 mg/dL (131-200); CREATININE 0.87 mg/dL (0.60-1.30); FREE T4 (FREE THYROXINE) 0.84 ng/dL (0.76-1.46); GLOMERULAR FILTR. RATE CALC > 60 mL/min (>60); GLUCOSE,RANDOM 107 mg/dL (70-110); HDL CHOLESTEROL 65 mg/dL (40-60); LDL CHOL (CALC.) 74 mg/dL (0-130); POTASSIUM 4.3 mmol/L (3.5-5.1); SODIUM SERUM 143 mmol/L (136-145); TOTAL PROTEIN, SERUM 7.1 g/dL (6.4-8.2); TRIGLYCERIDES 74 mg/dL (15-150); UREA NITROGEN, BLOOD 15 mg/dL (7-18)
[2018-06-04 09:32] LABS: HEMOGLOBIN A1C 5.4 % (4.5-6.2)
[2018-06-04 09:36] LABS: APPEARANCE,URINE CLEAR (CLEAR); BILIRUBIN,URINE NEGATIVE (NEGATIVE); GLUCOSE, URINE (UA) NEGATIVE (NEGATIVE); KETONES,URINE NEGATIVE (NEGATIVE); LEUKOCYTE ESTERASE ,URINE NEGATIVE (NEGATIVE); NITRATE,URINE NEGATIVE (NEGATIVE); OCCULT BLOOD,URINE NEGATIVE (NEGATIVE); PROTEIN,URINE NEGATIVE (NEGATIVE)
[2018-06-04 09:43] LABS: ALANINE AMINOTRANSFERASE 41 U/L (12-78)
[2018-06-04] MEDS ORDERED: GuaiFENesin/D-METHORPHAN [SUGAR-FREE] 200-20MG/10 ML SYRUP UDCUP PO PRN (12:45)
[2018-06-04] MEDS ORDERED: LOPERAMIDE HCL 2 MG CAPSULE PO PRN (12:45)
[2018-06-04] MEDS ORDERED: ACETAMINOPHEN 325 MG TABLET PO PRN (12:45)
[2018-06-04] MEDS ORDERED: MAG HYDROX/AL HYDROX/SIMETH ES 30 ML SUSPENSION UDCUP PO PRN (12:45)
[2018-06-04] MEDS ORDERED: MAGNESIUM HYDROXIDE SUSPENSION 30 ML UDCUP PO PRN (12:45)
[2018-06-04] MEDS ORDERED: HydrOXYzine PAMOATE 50 MG CAPSULE PO PRN (12:45)
[2018-06-04] MEDS ORDERED: PROMETHAZINE HCL 25 MG TABLET PO PRN (12:45)
[2018-06-04 16:41] VITALS: BP 113/72
[2018-06-04] MEDS: THIAMINE HCL 100 MG TABLET PO SCH (17:39)
[2018-06-04] MEDS: QUEtiapine FUMARATE 200 MG TABLET PO SCH (20:47)
[2018-06-05 06:38] VITALS: BP 110/68
[2018-06-05 08:12] VITALS: BP 128/77
[2018-06-05] MEDS: THIAMINE HCL 100 MG TABLET PO SCH ×2 (08:39→16:13)
[2018-06-05] MEDS: MULTIVITAMINS WITH MINERALS, THERAPEUTIC TABLET PO SCH (08:39)
[2018-06-05] MEDS: NALTREXONE HCL 50 MG TABLET PO SCH (08:39)
[2018-06-05] MEDS: SULFAMETHOX/TRIMETH DS 800-160 MG/TABLET PO SCH ×2 (08:39→16:13)
[2018-06-05] MEDS: BACITRACIN 28.4 GM OINTMENT TP SCH ×2 (08:39→16:13)
[2018-06-05] MEDS: LITHIUM CARBONATE 300 MG CAPSULE PO SCH ×2 (08:39→16:13)
[2018-06-05] MEDS: FOLIC ACID 1 MG TABLET PO SCH (08:39)
[2018-06-05] MEDS: CEPHALEXIN MONOHYDRATE 500 MG CAPSULE PO SCH ×2 (13:04→17:25)
[2018-06-05] MEDS: QUEtiapine FUMARATE 100 MG TABLET PO PRN (16:13)
[2018-06-05 17:06] VITALS: BP 120/72
[2018-06-05] MEDS: QUEtiapine FUMARATE 200 MG TABLET PO SCH (20:38)
[2018-06-06] MEDS: CEPHALEXIN MONOHYDRATE 500 MG CAPSULE PO SCH ×3 (00:19→12:08)
[2018-06-06 05:04] VITALS: BP 118/70
[2018-06-06 08:27] VITALS: BP 110/46
[2018-06-06] MEDS: THIAMINE HCL 100 MG TABLET PO SCH ×2 (08:55→17:17)
[2018-06-06] MEDS: SULFAMETHOX/TRIMETH DS 800-160 MG/TABLET PO SCH ×2 (08:55→17:17)
[2018-06-06] MEDS: NALTREXONE HCL 50 MG TABLET PO SCH (08:55)
[2018-06-06] MEDS: MULTIVITAMINS WITH MINERALS, THERAPEUTIC TABLET PO SCH (08:55)
[2018-06-06] MEDS: FOLIC ACID 1 MG TABLET PO SCH (08:55)
[2018-06-06] MEDS: LITHIUM CARBONATE 300 MG CAPSULE PO SCH ×2 (08:55→17:18)
[2018-06-06] MEDS: BACITRACIN 28.4 GM OINTMENT TP SCH ×2 (08:57→17:19)
[2018-06-06 09:10] VITALS: BP 112/72
[2018-06-06] MEDS: LORazepam 2 MG TABLET PO PRN ×2 (09:10→17:31)
[2018-06-06] MEDS: QUEtiapine FUMARATE 100 MG TABLET PO PRN ×2 (09:10→17:30)
[2018-06-06 16:13] VITALS: BP 120/72
[2018-06-06] MEDS: QUEtiapine FUMARATE 200 MG TABLET PO SCH (19:57)
[2018-06-07 01:51] VITALS: BP 102/60
[2018-06-07] MEDS: CEPHALEXIN MONOHYDRATE 500 MG CAPSULE PO SCH ×2 (06:23→18:59)
[2018-06-07 08:00] VITALS: BP 111/67
[2018-06-07] MEDS: FOLIC ACID 1 MG TABLET PO SCH (08:08)
[2018-06-07] MEDS: LITHIUM CARBONATE 300 MG CAPSULE PO SCH ×2 (08:08→17:20)
[2018-06-07] MEDS: SULFAMETHOX/TRIMETH DS 800-160 MG/TABLET PO SCH ×2 (08:09→17:20)
[2018-06-07] MEDS: NALTREXONE HCL 50 MG TABLET PO SCH (08:09)
[2018-06-07] MEDS: THIAMINE HCL 100 MG TABLET PO SCH ×2 (08:09→17:20)
[2018-06-07] MEDS: MULTIVITAMINS WITH MINERALS, THERAPEUTIC TABLET PO SCH (08:09)
[2018-06-07] MEDS: BACITRACIN 28.4 GM OINTMENT TP SCH ×2 (08:09→17:00)
[2018-06-07] MEDS: LORazepam 2 MG TABLET PO PRN ×2 (08:11→19:00)
[2018-06-07] MEDS: QUEtiapine FUMARATE 100 MG TABLET PO PRN (08:14)
[2018-06-07 16:43] VITALS: BP 96/57
[2018-06-07] MEDS: QUEtiapine FUMARATE 200 MG TABLET PO SCH (20:02)
[2018-06-08 00:25] VITALS: BP 101/63
[2018-06-08] MEDS: CEPHALEXIN MONOHYDRATE 500 MG CAPSULE PO SCH ×4 (00:29→17:08)
[2018-06-08] MEDS: LITHIUM CARBONATE 300 MG CAPSULE PO SCH ×2 (08:52→16:52)
[2018-06-08] MEDS: NALTREXONE HCL 50 MG TABLET PO SCH (08:52)
[2018-06-08] MEDS: THIAMINE HCL 100 MG TABLET PO SCH ×2 (08:53→16:52)
[2018-06-08] MEDS: SULFAMETHOX/TRIMETH DS 800-160 MG/TABLET PO SCH ×2 (08:53→16:52)
[2018-06-08] MEDS: MULTIVITAMINS WITH MINERALS, THERAPEUTIC TABLET PO SCH (08:53)
[2018-06-08] MEDS: FOLIC ACID 1 MG TABLET PO SCH (08:53)
[2018-06-08] MEDS: BACITRACIN 28.4 GM OINTMENT TP SCH ×2 (08:53→16:52)
[2018-06-08] MEDS: QUEtiapine FUMARATE 100 MG TABLET PO PRN (09:01)
[2018-06-08] MEDS: LORazepam 2 MG TABLET PO PRN ×2 (09:01→17:08)
[2018-06-08 13:18] VITALS: BP 94/64
[2018-06-08 16:22] VITALS: BP 120/83
[2018-06-08] MEDS: QUEtiapine FUMARATE 200 MG TABLET PO SCH (20:01)
[2018-06-09] MEDS: CEPHALEXIN MONOHYDRATE 500 MG CAPSULE PO SCH ×4 (00:51→17:00)
[2018-06-09 01:00] VITALS: BP 100/65
[2018-06-09] MEDS: LORazepam 2 MG TABLET PO PRN ×2 (05:39→12:16)
[2018-06-09] MEDS: QUEtiapine FUMARATE 100 MG TABLET PO PRN ×2 (05:39→12:16)
[2018-06-09] MEDS: BACITRACIN 28.4 GM OINTMENT TP SCH ×2 (08:22→16:59)
[2018-06-09] MEDS: MULTIVITAMINS WITH MINERALS, THERAPEUTIC TABLET PO SCH (08:22)
[2018-06-09] MEDS: THIAMINE HCL 100 MG TABLET PO SCH ×2 (08:22→16:31)
[2018-06-09] MEDS: LITHIUM CARBONATE 300 MG CAPSULE PO SCH ×2 (08:22→16:31)
[2018-06-09] MEDS: FOLIC ACID 1 MG TABLET PO SCH (08:22)
[2018-06-09] MEDS: NALTREXONE HCL 50 MG TABLET PO SCH (08:22)
[2018-06-09] MEDS: SULFAMETHOX/TRIMETH DS 800-160 MG/TABLET PO SCH ×2 (08:23→16:31)
[2018-06-09 09:47] VITALS: BP 108/62
[2018-06-09 18:44] VITALS: BP 103/61
[2018-06-09] MEDS: QUEtiapine FUMARATE 200 MG TABLET PO SCH (20:26)
[2018-06-10] MEDS: CEPHALEXIN MONOHYDRATE 500 MG CAPSULE PO SCH ×4 (00:06→17:00)
[2018-06-10 00:26] VITALS: BP 108/55
[2018-06-10] MEDS: MULTIVITAMINS WITH MINERALS, THERAPEUTIC TABLET PO SCH (08:42)
[2018-06-10] MEDS: LITHIUM CARBONATE 300 MG CAPSULE PO SCH ×2 (08:42→16:59)
[2018-06-10] MEDS: NALTREXONE HCL 50 MG TABLET PO SCH (08:42)
[2018-06-10] MEDS: THIAMINE HCL 100 MG TABLET PO SCH ×2 (08:42→16:59)
[2018-06-10] MEDS: FOLIC ACID 1 MG TABLET PO SCH (08:42)
[2018-06-10] MEDS: SULFAMETHOX/TRIMETH DS 800-160 MG/TABLET PO SCH ×2 (08:43→16:59)
[2018-06-10] MEDS: QUEtiapine FUMARATE 100 MG TABLET PO PRN (08:48)
[2018-06-10] MEDS: LORazepam 2 MG TABLET PO PRN ×2 (08:49→20:43)
[2018-06-10] MEDS: BACITRACIN 28.4 GM OINTMENT TP SCH ×2 (08:57→20:43)
[2018-06-10 09:19] VITALS: BP 108/69
[2018-06-10 18:43] VITALS: BP 121/71
[2018-06-10] MEDS: QUEtiapine FUMARATE 200 MG TABLET PO SCH (20:36)
[2018-06-11] MEDS: CEPHALEXIN MONOHYDRATE 500 MG CAPSULE PO SCH ×4 (00:03→17:08)
[2018-06-11 00:05] VITALS: BP 108/61
[2018-06-11] MEDS: SULFAMETHOX/TRIMETH DS 800-160 MG/TABLET PO SCH ×2 (08:46→16:18)
[2018-06-11] MEDS: NALTREXONE HCL 50 MG TABLET PO SCH (08:47)
[2018-06-11] MEDS: THIAMINE HCL 100 MG TABLET PO SCH ×2 (08:47→16:18)
[2018-06-11] MEDS: MULTIVITAMINS WITH MINERALS, THERAPEUTIC TABLET PO SCH (08:47)
[2018-06-11] MEDS: FOLIC ACID 1 MG TABLET PO SCH (08:47)
[2018-06-11] MEDS: LITHIUM CARBONATE 300 MG CAPSULE PO SCH ×2 (08:48→16:18)
[2018-06-11] MEDS: LORazepam 2 MG TABLET PO PRN ×2 (08:51→22:18)
[2018-06-11] MEDS: QUEtiapine FUMARATE 100 MG TABLET PO PRN (08:51)
[2018-06-11] MEDS: BACITRACIN 28.4 GM OINTMENT TP SCH ×2 (08:55→16:18)
[2018-06-11 09:58] VITALS: BP 145/93
[2018-06-11 20:02] VITALS: BP 121/56
[2018-06-11] MEDS: QUEtiapine FUMARATE 200 MG TABLET PO SCH (20:28)
[2018-06-12] MEDS: CEPHALEXIN MONOHYDRATE 500 MG CAPSULE PO SCH ×4 (06:14→18:07)
[2018-06-12 08:00] VITALS: BP 112/68
[2018-06-12] MEDS: LITHIUM CARBONATE 300 MG CAPSULE PO SCH ×2 (10:07→16:22)
[2018-06-12] MEDS: MULTIVITAMINS WITH MINERALS, THERAPEUTIC TABLET PO SCH (10:07)
[2018-06-12] MEDS: THIAMINE HCL 100 MG TABLET PO SCH ×2 (10:08→16:22)
[2018-06-12] MEDS: NALTREXONE HCL 50 MG TABLET PO SCH (10:08)
[2018-06-12] MEDS: FOLIC ACID 1 MG TABLET PO SCH (10:08)
[2018-06-12] MEDS: SULFAMETHOX/TRIMETH DS 800-160 MG/TABLET PO SCH ×2 (10:08→16:22)
[2018-06-12] MEDS: BACITRACIN 28.4 GM OINTMENT TP SCH ×2 (10:09→16:24)
[2018-06-12] MEDS: LORazepam 2 MG TABLET PO PRN (12:41)
[2018-06-12] MEDS: QUEtiapine FUMARATE 100 MG TABLET PO PRN (12:42)
[2018-06-12 16:30] VITALS: BP 106/56
[2018-06-12] MEDS: QUEtiapine FUMARATE 200 MG TABLET PO SCH (20:36)
[2018-06-13] MEDS: CEPHALEXIN MONOHYDRATE 500 MG CAPSULE PO SCH ×3 (06:14→13:15)
[2018-06-13] MEDS: QUEtiapine FUMARATE 100 MG TABLET PO PRN (06:22)
[2018-06-13] MEDS: LORazepam 2 MG TABLET PO PRN (06:22)
[2018-06-13] MEDS: THIAMINE HCL 100 MG TABLET PO SCH (08:53)
[2018-06-13] MEDS: NALTREXONE HCL 50 MG TABLET PO SCH (08:53)
[2018-06-13] MEDS: MULTIVITAMINS WITH MINERALS, THERAPEUTIC TABLET PO SCH (08:54)
[2018-06-13] MEDS: FOLIC ACID 1 MG TABLET PO SCH (08:55)
[2018-06-13] MEDS: LITHIUM CARBONATE 300 MG CAPSULE PO SCH (08:56)
[2018-06-13] MEDS: SULFAMETHOX/TRIMETH DS 800-160 MG/TABLET PO SCH (08:57)
[2018-06-13] MEDS: BACITRACIN 28.4 GM OINTMENT TP SCH (08:57)
[2018-06-13 09:35] VITALS: BP 102/68
[2018-06-13] MEDS ORDERED: QUET200T29 PO (12:46)
[2018-06-13] MEDS ORDERED: LITH300C3 PO (12:46)
[2018-06-13] MEDS ORDERED: NALT50TA PO (12:46)
[2018-06-13] MEDS ORDERED: BACTDSB PO (13:24)
[2018-06-13] MEDS ORDERED: THIA100T67 PO (13:24)
[2018-06-13] MEDS ORDERED: FOLI1 PO (13:24)
[2018-06-13] MEDS ORDERED: MULT-1239 PO (13:24)
[2018-06-13] MEDS ORDERED: NALT50TA6 PO (13:24)
[2018-06-13] MEDS ORDERED: CEPH500 PO (13:24)
== END 2018-06-13 14:50 | DRG 885 ==
LOC: B2X 20:00 → 3EX 06-07 01:00
PROVIDERS: ADMIT Psychiatry & Neurology Psychiatry; ATTEND Psychiatry & Neurology Psychiatry
PROC: 5A09357 Assistance with Respiratory Ventilation, Less than 24 Consecutive Hours, Continuous Positive Airway Pressure (ICD-10-PCS; principal; 2018-06-08)
PROC: 5A09357 Assistance with Respiratory Ventilation, Less than 24 Consecutive Hours, Continuous Positive Airway Pressure (ICD-10-PCS; 2018-06-10)
DX: F25.0 Schizoaffective disorder, bipolar type (principal); E03.9 Hypothyroidism, unspecified; E88.09 Other disorders of plasma-protein metabolism, not elsewhere classified; F15.10 Other stimulant abuse, uncomplicated; F17.210 Nicotine dependence, cigarettes, uncomplicated; S90.512A Abrasion, left ankle, initial encounter; G47.33 Obstructive sleep apnea (adult) (pediatric); J44.9 Chronic obstructive pulmonary disease, unspecified; Z59.0 Homelessness; Z65.3 Problems related to other legal circumstances; Z91.14 Patient's other noncompliance with medication regimen; Z91.19 Patient's noncompliance with other medical treatment and regimen; Z28.21 Immunization not carried out because of patient refusal; Z79.899 Other long term (current) drug therapy
CPT/HCPCS: 80307; 83036; 84439; 84443; 87081; 94660; G0378

== ENCOUNTER 2019-05-27 12:42 | Inpatient (IN) | payer MEDICARE, MEDICAID ==
[~2019-05-27] VITALS: Ht 180.3 cm; Wt 98.8 kg
[~2019-05-27 12:42] MED LIST changes: -ACAM333T7 PO; +BACTDSB PO; +CEPH500 PO; +FOLI1 PO; +MULT-1239 PO; +NALT50TA PO; -QUET200T PO; +THIA100T67 PO
[2019-05-27 13:12] VITALS: BP 137/63
[2019-05-27] MEDS ORDERED: LOPERAMIDE HCL 2 MG CAPSULE PO PRN (14:00)
[2019-05-27] MEDS ORDERED: HydrOXYzine PAMOATE 50 MG CAPSULE PO PRN (14:00)
[2019-05-27] MEDS ORDERED: QUEtiapine FUMARATE 100 MG TABLET PO PRN (14:00)
[2019-05-27] MEDS ORDERED: GuaiFENesin/D-METHORPHAN [SUGAR-FREE] 200-20MG/10 ML SYRUP UDCUP PO PRN (14:00)
[2019-05-27] MEDS ORDERED: PROMETHAZINE HCL 25 MG TABLET PO PRN (14:00)
[2019-05-27] MEDS ORDERED: ZOLPIDEM TARTRATE 10 MG TABLET PO PRN (14:00)
[2019-05-27] MEDS ORDERED: ACETAMINOPHEN 325 MG TABLET PO PRN (14:00)
[2019-05-27] MEDS ORDERED: MAGNESIUM HYDROXIDE SUSPENSION 30 ML UDCUP PO PRN (14:00)
[2019-05-27] MEDS ORDERED: MAG HYDROX/AL HYDROX/SIMETH ES 30 ML SUSPENSION UDCUP PO PRN (14:00)
[2019-05-27] MEDS ORDERED: TUBERCULIN, PURIFIED PROTEIN DERIVATIVE 5 TU/0.1 ML SYRINGE ID ONE (14:00)
[2019-05-27 15:20] VITALS: BP 109/66
[2019-05-27] MEDS: THIAMINE HCL 100 MG TABLET PO SCH (18:07)
[2019-05-27] MEDS: QUEtiapine FUMARATE 200 MG TABLET PO SCH (20:39)
[2019-05-28 00:10] VITALS: BP 109/62
[2019-05-28 07:42] LABS: BASOPHILS % (AUTO) 0.6 % (0.0-2.0); EOSINOPHILS % (AUTO) 4.9 % (1.0-6.0); HEMATOCRIT 39.3 % (41-53); HEMOGLOBIN 13.5 g/dL (13.5-17.5); LYMPHOCYTES # (AUTO) 1.7 K/uL (1.0-4.8); LYMPHOCYTES % (AUTO) 34.5 % (22.0-44.0); MEAN CORPUSCULAR HEMOGLOBIN 32.5 pg (26.0-34.0); MEAN CORPUSCULAR HGB CONC 34.3 G/dL (31.0-37.0); MEAN CORPUSCULAR VOLUME 95 fL (80-100); MONOCYTES # (AUTO) 0.5 K/uL (0.1-1.0); MONOCYTES % (AUTO) 9.6 % (2.0-9.0); NEUTROPHILS # (AUTO) 2.6 K/uL (1.8-7.7); NEUTROPHILS % (AUTO) 50.4 % (40.0-70.0); PLATELET COUNT (AUTO) 211 K/uL (150-450); RED BLOOD CELL COUNT(AUTO) 4.15 MIL/uL (4.50-5.90); RED CELL DISTRIBUTION WIDTH 12.9 % (11.5-14.5)
[2019-05-28 07:54] LABS: HEMOGLOBIN A1C 5.4 % (4.5-6.2)
[2019-05-28 08:11] LABS: ALANINE AMINOTRANSFERASE 28 U/L (12-78); ALKALINE PHOSPHATASE 47 U/L (46-116); ANION GAP 7 mmol/L (8-16); ASPARTATE AMINOTRANSFERASE 19 U/L (15-37); BILIRUBIN,TOTAL 0.3 mg/dL (0.1-1.0); CALCIUM, TOTAL 8.3 mg/dL (8.8-10.5); CARBON DIOXIDE 29 mmol/L (22-29); CHLORIDE 105 mmol/L (98-107); CHOL/HDL RATIO 2.7 (4.2-7.3); CHOLESTEROL 134 mg/dL (131-200); FREE T4 (FREE THYROXINE) 1.11 ng/dL (0.76-1.46); GLOMERULAR FILTR. RATE CALC > 60 mL/min (>60); GLUCOSE,RANDOM 105 mg/dL (70-110); HDL CHOLESTEROL 50 mg/dL (40-60); LDL CHOL (CALC.) 74 mg/dL (0-130); POTASSIUM 3.5 mmol/L (3.5-5.1); SODIUM SERUM 141 mmol/L (136-145); THYROID STIMULATING HORMONE 0.58 uIU/mL (0.36-3.74); TOTAL PROTEIN, SERUM 6.3 g/dL (6.4-8.2); TRIGLYCERIDES 51 mg/dL (15-150); UREA NITROGEN, BLOOD 19 mg/dL (7-18)
[2019-05-28 08:32] VITALS: BP 109/69
[2019-05-28] MEDS: MULTIVITAMINS WITH MINERALS, THERAPEUTIC TABLET PO SCH (08:32)
[2019-05-28] MEDS: FOLIC ACID 1 MG TABLET PO SCH (08:32)
[2019-05-28] MEDS: NALTREXONE HCL 50 MG TABLET PO SCH (08:32)
[2019-05-28] MEDS: LITHIUM CARBONATE 600 MG CAPSULE PO SCH (08:32)
[2019-05-28] MEDS: THIAMINE HCL 100 MG TABLET PO SCH ×2 (08:33→16:30)
[2019-05-28 16:50] VITALS: BP 120/65
[2019-05-28] MEDS: QUEtiapine FUMARATE 200 MG TABLET PO SCH (20:46)
[2019-05-29 05:33] VITALS: BP 129/70
[2019-05-29] MEDS: NALTREXONE HCL 50 MG TABLET PO SCH (08:48)
[2019-05-29] MEDS: FOLIC ACID 1 MG TABLET PO SCH (08:48)
[2019-05-29] MEDS: THIAMINE HCL 100 MG TABLET PO SCH ×2 (08:48→16:40)
[2019-05-29] MEDS: LITHIUM CARBONATE 600 MG CAPSULE PO SCH (08:48)
[2019-05-29] MEDS: MULTIVITAMINS WITH MINERALS, THERAPEUTIC TABLET PO SCH (08:48)
[2019-05-29 10:28] VITALS: BP 141/65
[2019-05-29 16:23] VITALS: BP 118/70
[2019-05-29] MEDS: QUEtiapine FUMARATE 200 MG TABLET PO SCH (20:12)
[2019-05-30 00:06] VITALS: BP 131/82
[2019-05-30 08:14] VITALS: BP 126/75
[2019-05-30] MEDS: MULTIVITAMINS WITH MINERALS, THERAPEUTIC TABLET PO SCH (08:20)
[2019-05-30] MEDS: LITHIUM CARBONATE 600 MG CAPSULE PO SCH (08:20)
[2019-05-30] MEDS: NALTREXONE HCL 50 MG TABLET PO SCH (08:20)
[2019-05-30] MEDS: THIAMINE HCL 100 MG TABLET PO SCH ×2 (08:20→16:38)
[2019-05-30] MEDS: FOLIC ACID 1 MG TABLET PO SCH (08:20)
[2019-05-30 16:04] VITALS: BP 123/67
[2019-05-30] MEDS: LORazepam 2 MG TABLET PO PRN (16:56)
[2019-05-30] MEDS: QUEtiapine FUMARATE 200 MG TABLET PO SCH (20:39)
[2019-05-31 08:34] VITALS: BP 117/65
[2019-05-31] MEDS: NALTREXONE HCL 50 MG TABLET PO SCH (08:57)
[2019-05-31] MEDS: THIAMINE HCL 100 MG TABLET PO SCH ×2 (08:57→16:39)
[2019-05-31] MEDS: FOLIC ACID 1 MG TABLET PO SCH (08:57)
[2019-05-31] MEDS: LITHIUM CARBONATE 300 MG CAPSULE PO SCH (08:57)
[2019-05-31] MEDS: MULTIVITAMINS WITH MINERALS, THERAPEUTIC TABLET PO SCH (08:57)
[2019-05-31] MEDS: LORazepam 2 MG TABLET PO PRN ×2 (09:39→17:07)
[2019-05-31 16:19] VITALS: BP 104/62
[2019-05-31] MEDS: QUEtiapine FUMARATE 200 MG TABLET PO SCH (20:18)
[2019-06-01 00:18] VITALS: BP 112/68
[2019-06-01 08:21] VITALS: BP 113/71
[2019-06-01] MEDS: LITHIUM CARBONATE 300 MG CAPSULE PO SCH ×2 (08:32→10:00)
[2019-06-01] MEDS: FOLIC ACID 1 MG TABLET PO SCH ×2 (08:32→10:00)
[2019-06-01] MEDS: MULTIVITAMINS WITH MINERALS, THERAPEUTIC TABLET PO SCH ×2 (08:32→10:00)
[2019-06-01] MEDS: NALTREXONE HCL 50 MG TABLET PO SCH ×2 (08:32→10:00)
[2019-06-01] MEDS: THIAMINE HCL 100 MG TABLET PO SCH ×3 (08:33→16:26)
[2019-06-01 16:05] VITALS: BP 118/85
[2019-06-01] MEDS: LORazepam 2 MG TABLET PO PRN (16:26)
[2019-06-01] MEDS: QUEtiapine FUMARATE 200 MG TABLET PO SCH (20:43)
[2019-06-02 08:17] VITALS: BP 137/78
[2019-06-02] MEDS: NALTREXONE HCL 50 MG TABLET PO SCH (08:39)
[2019-06-02] MEDS: THIAMINE HCL 100 MG TABLET PO SCH ×2 (08:39→16:16)
[2019-06-02] MEDS: LITHIUM CARBONATE 300 MG CAPSULE PO SCH (08:39)
[2019-06-02] MEDS: MULTIVITAMINS WITH MINERALS, THERAPEUTIC TABLET PO SCH (08:39)
[2019-06-02] MEDS: FOLIC ACID 1 MG TABLET PO SCH (08:40)
[2019-06-02 16:25] VITALS: BP 118/78
[2019-06-02] MEDS: QUEtiapine FUMARATE 200 MG TABLET PO SCH (20:16)
[2019-06-03 06:09] VITALS: BP 104/62
[2019-06-03 08:51] VITALS: BP 119/69
[2019-06-03] MEDS: LITHIUM CARBONATE 300 MG CAPSULE PO SCH (09:02)
[2019-06-03] MEDS: THIAMINE HCL 100 MG TABLET PO SCH (09:02)
[2019-06-03] MEDS: MULTIVITAMINS WITH MINERALS, THERAPEUTIC TABLET PO SCH (09:02)
[2019-06-03] MEDS: FOLIC ACID 1 MG TABLET PO SCH (09:56)
[2019-06-03] MEDS: NALTREXONE HCL 50 MG TABLET PO SCH (09:56)
[2019-06-03] MEDS ORDERED: LITH300C3 PO (13:25)
[2019-06-03] MEDS ORDERED: QUET400T PO (13:25)
== END 2019-06-03 20:07 | disposition home or self-care (01) | DRG 885 ==
LOC: B2X 13:12
PROVIDERS: ADMIT Psychiatry & Neurology Psychiatry; ATTEND Psychiatry & Neurology Psychiatry
DX: F25.0 Schizoaffective disorder, bipolar type (principal); E88.09 Other disorders of plasma-protein metabolism, not elsewhere classified; E03.9 Hypothyroidism, unspecified; G47.33 Obstructive sleep apnea (adult) (pediatric); R45.87 Impulsiveness; F17.210 Nicotine dependence, cigarettes, uncomplicated; F15.10 Other stimulant abuse, uncomplicated; J44.9 Chronic obstructive pulmonary disease, unspecified; Z59.0 Homelessness; Z81.8 Family history of other mental and behavioral disorders; Z91.14 Patient's other noncompliance with medication regimen
CPT/HCPCS: 83036; 84439; 84443; 86592

== ENCOUNTER 2020-06-05 17:35 | Inpatient (IN) | payer MEDICARE, MEDICAID ==
[~2020-06-05 17:35] MED LIST changes: -BACTDSB PO; -CEPH500 PO; -FOLI1 PO; -MULT-1239 PO; -QUET200T29 PO; +QUET400T PO; -THIA100T67 PO
[2020-06-05 20:39] VITALS: BP 151/73
[2020-06-05] MEDS ORDERED: LORazepam 2 MG TABLET PO PRN (22:15)
[2020-06-05] MEDS ORDERED: HALOPERIDOL 5 MG TABLET PO PRN (22:15)
[2020-06-05] MEDS ORDERED: ZOLPIDEM TARTRATE 10 MG TABLET PO PRN (22:15)
[2020-06-06 02:45] VITALS: BP 129/80
[2020-06-06] MEDS ORDERED: INFLUENZA VIRUS VACCINE QVS 2020-21 (6MO+)/PF 60 MCG/0.5 ML SYRINGE IM ONE (05:30)
[2020-06-06] MEDS ORDERED: PNEUMOCOCCAL VACCINE POLYVALENT 0.5 ML VIAL [PPSV23] IM ONE (05:30)
[2020-06-06] MEDS ORDERED: ACETAMINOPHEN 325 MG TABLET PO PRN (07:00)
[2020-06-06] MEDS ORDERED: MAG HYDROX/AL HYDROX/SIMETH ES 30 ML SUSPENSION UDCUP PO PRN (07:00)
[2020-06-06] MEDS ORDERED: ONDANSETRON HCL 4 MG TABLET PO PRN (07:00)
[2020-06-06] MEDS ORDERED: PETROLATUM,WHITE 28 GM JELLY TP PRN (07:00)
[2020-06-06] MEDS ORDERED: GuaiFENesin/D-METHORPHAN [SUGAR-FREE] 200-20MG/10 ML SYRUP UDCUP PO PRN (07:00)
[2020-06-06] MEDS ORDERED: LOPERAMIDE HCL 2 MG CAPSULE PO PRN (07:00)
[2020-06-06] MEDS ORDERED: CloNIDine HCL 0.1 MG TABLET PO PRN (07:00)
[2020-06-06] MEDS ORDERED: ALBUTEROL SULFATE HFA 90 MCG/PUFF 8 GM INHALER IH PRN (07:00)
[2020-06-06] MEDS ORDERED: IBUPROFEN 400 MG TABLET PO PRN (07:00)
[2020-06-06] MEDS ORDERED: MAGNESIUM HYDROXIDE SUSPENSION 30 ML UDCUP PO PRN (07:00)
[2020-06-06] MEDS ORDERED: NICOTINE 14 MG/24 HOUR PATCH TD PRN (07:00)
[2020-06-06] MEDS ORDERED: DOCUSATE SODIUM 100 MG CAPSULE PO PRN (07:00)
[2020-06-06 08:01] VITALS: BP 123/55
[2020-06-06 08:48] LABS: BASOPHILS % (AUTO) 0.5 % (0.0-2.0); EOSINOPHILS % (AUTO) 2.6 % (1.0-6.0); HEMATOCRIT 41.3 % (41-53); MEAN CORPUSCULAR HGB CONC 33.8 G/dL (31.0-37.0); MEAN CORPUSCULAR VOLUME 98 fL (80-100); MONOCYTES # (AUTO) 0.5 K/uL (0.1-1.0); MONOCYTES % (AUTO) 9.4 % (2.0-9.0); NEUTROPHILS # (AUTO) 3.9 K/uL (1.8-7.7); NEUTROPHILS % (AUTO) 69.5 % (40.0-70.0); PLATELET COUNT (AUTO) 212 K/uL (150-450); RED BLOOD CELL COUNT(AUTO) 4.24 MIL/uL (4.50-5.90)
[2020-06-06 09:56] LABS: ALANINE AMINOTRANSFERASE 49 U/L (12-78); ALBUMIN 3.2 g/dL (3.4-5.0); ALKALINE PHOSPHATASE 48 U/L (46-116); ANION GAP 7 mmol/L (8-16); ASPARTATE AMINOTRANSFERASE 29 U/L (15-37); BILIRUBIN,TOTAL 0.3 mg/dL (0.1-1.0); CALCIUM, TOTAL 8.4 mg/dL (8.8-10.5); CARBON DIOXIDE 27 mmol/L (22-29); CHLORIDE 105 mmol/L (98-107); CHOL/HDL RATIO 2.5 (4.2-7.3); CHOLESTEROL 175 mg/dL (131-200); CREATININE 0.91 mg/dL (0.60-1.30); FREE T4 (FREE THYROXINE) 0.91 ng/dL (0.76-1.46); GLOMERULAR FILTR. RATE CALC > 60 mL/min (>60); GLUCOSE,RANDOM 97 mg/dL (70-110); HDL CHOLESTEROL 69 mg/dL (40-60); LDL CHOL (CALC.) 99 mg/dL (0-130); POTASSIUM 3.8 mmol/L (3.5-5.1); SODIUM SERUM 139 mmol/L (136-145); THYROID STIMULATING HORMONE 0.85 uIU/mL (0.36-3.74); TOTAL PROTEIN, SERUM 6.4 g/dL (6.4-8.2); TRIGLYCERIDES 36 mg/dL (15-150); UREA NITROGEN, BLOOD 22 mg/dL (7-18)
[2020-06-06 16:02] VITALS: BP 121/60
[2020-06-06] MEDS: LITHIUM CARBONATE 600 MG CAPSULE PO SCH (21:16)
[2020-06-06] MEDS: QUEtiapine FUMARATE 200 MG TABLET PO SCH (21:19)
[2020-06-07 08:20] VITALS: BP 129/70
[2020-06-07] MEDS ORDERED: TraMADol HCL 50 MG TABLET PO PRN (15:15)
[2020-06-07 16:02] VITALS: BP 118/74
[2020-06-07] MEDS: QUEtiapine FUMARATE 200 MG TABLET PO SCH (20:30)
[2020-06-07] MEDS: LITHIUM CARBONATE 600 MG CAPSULE PO SCH (20:30)
[2020-06-08 00:48] VITALS: BP 126/68
[2020-06-08 08:14] VITALS: BP 100/54
[2020-06-08 16:02] VITALS: BP 120/62
[2020-06-08] MEDS: QUEtiapine FUMARATE 200 MG TABLET PO SCH (21:05)
[2020-06-08] MEDS: LITHIUM CARBONATE 600 MG CAPSULE PO SCH (21:05)
[2020-06-09 00:02] VITALS: BP 117/79
[2020-06-09 08:03] VITALS: BP 102/62
[2020-06-09] MEDS ORDERED: LITH600C PO (10:26)
== END 2020-06-09 10:20 | disposition home or self-care (01) | DRG 885 ==
LOC: UNDOADMIN 06-06 02:24 → B2X 06-06 02:24
PROVIDERS: ADMIT Psychiatry & Neurology Psychiatry; ATTEND Psychiatry & Neurology Psychiatry
DX: F25.1 Schizoaffective disorder, depressive type (principal); R45.851 Suicidal ideations; E83.51 Hypocalcemia; F10.10 Alcohol abuse, uncomplicated; M19.90 Unspecified osteoarthritis, unspecified site; Y90.9 Presence of alcohol in blood, level not specified; G89.29 Other chronic pain; J44.9 Chronic obstructive pulmonary disease, unspecified; Z59.0 Homelessness; Z79.899 Other long term (current) drug therapy; Z87.891 Personal history of nicotine dependence; Z88.8 Allergy status to other drugs, medicaments and biological substances
CPT/HCPCS: 84439; 84443

== ENCOUNTER 2020-06-05 22:01 | Emergency (ER) | payer MEDICAID, MEDICARE ==
[~2020-06-05] VITALS: Ht 180.3 cm; Wt 98.0 kg
[2020-06-05] MEDS ORDERED: DiphenhydrAMINE HCL 50 MG/ML VIAL IM ONE (22:30)
[2020-06-05] MEDS ORDERED: HALOPERIDOL LACTATE 5 MG/ML VIAL ONE (22:30)
[2020-06-05] MEDS ORDERED: HALOPERIDOL LACTATE 5 MG/ML VIAL IM ONE (22:30)
[2020-06-05] MEDS ORDERED: LORazepam 2 MG/ML VIAL IM ONE (22:30)
[2020-06-05] MEDS ORDERED: DiphenhydrAMINE HCL 50 MG/ML VIAL ONE (22:30)
[2020-06-05] MEDS ORDERED: LORazepam 2 MG/ML VIAL ONE (22:30)
[2020-06-05 22:59] LABS: COVID AG,FIA SOURCE NASOPHARYNGEAL
[2020-06-05 23:01] LABS: BASOPHILS % (AUTO) 0.4 % (0.0-2.0); EOSINOPHILS % (AUTO) 2.7 % (1.0-6.0); HEMATOCRIT 43.6 % (41-53); HEMOGLOBIN 14.6 g/dL (13.5-17.5); LYMPHOCYTES # (AUTO) 1.8 K/uL (1.0-4.8); LYMPHOCYTES % (AUTO) 26.8 % (22.0-44.0); MEAN CORPUSCULAR HEMOGLOBIN 32.6 pg (26.0-34.0); MEAN CORPUSCULAR HGB CONC 33.5 G/dL (31.0-37.0); MEAN CORPUSCULAR VOLUME 97 fL (80-100); MONOCYTES # (AUTO) 0.6 K/uL (0.1-1.0); MONOCYTES % (AUTO) 9.1 % (2.0-9.0); NEUTROPHILS # (AUTO) 4.2 K/uL (1.8-7.7); PLATELET COUNT (AUTO) 244 K/uL (150-450); RED BLOOD CELL COUNT(AUTO) 4.47 MIL/uL (4.50-5.90); RED CELL DISTRIBUTION WIDTH 12.7 % (11.5-14.5)
[2020-06-05 23:18] LABS: ANION GAP 14 mmol/L (8-16); CALCIUM, TOTAL 8.8 mg/dL (8.8-10.5); CARBON DIOXIDE 25 mmol/L (22-29); CHLORIDE 103 mmol/L (98-107); CREATININE 1.41 mg/dL (0.60-1.30); GLOMERULAR FILTR. RATE CALC 51 mL/min (>60); GLUCOSE,RANDOM 95 mg/dL (70-110); POTASSIUM 3.5 mmol/L (3.5-5.1); SODIUM SERUM 142 mmol/L (136-145); UREA NITROGEN, BLOOD 25 mg/dL (7-18)
[2020-06-05 23:24] LABS: ALANINE AMINOTRANSFERASE 51 U/L (12-78); ALBUMIN 3.6 g/dL (3.4-5.0); ALKALINE PHOSPHATASE 54 U/L (46-116); ASPARTATE AMINOTRANSFERASE 32 U/L (15-37); BILIRUBIN,TOTAL 0.3 mg/dL (0.1-1.0); TOTAL PROTEIN, SERUM 7.2 g/dL (6.4-8.2)
[2020-06-06 00:30] VITALS: BP 139/78
== END 2020-06-06 02:16 | disposition home or self-care (01) ==
LOC: EMS 22:01
DX: F25.9 Schizoaffective disorder, unspecified (principal); F31.9 Bipolar disorder, unspecified; Z79.899 Other long term (current) drug therapy; Z20.828 Contact with and (suspected) exposure to other viral communicable diseases
CPT/HCPCS: 80053; 80178; 85025; 87426; 96372; 99291; G0480; J1200; J1630; J2060